=== PATIENT | male | born 1980 | race Caucasian/White ===

== ENCOUNTER 2019-04-18 08:46 | Outpatient (CLI) | payer BC ==
--- NOTE | 2019-04-18 09:06 | RAD ---
Exam: Left knee 3 views: HISTORY: Primary osteoarthritis of left knee, left knee pain without injury COMPARISON: None FINDINGS: No evidence for fracture, dislocation, or other significant acute osseous abnormality. IMPRESSION: No significant acute process.
== END 2019-04-18 08:47 | disposition home or self-care (01) ==
LOC: SCSRAD 08:46
PROVIDERS: ATTEND Family Medicine
DX: M17.12 Unilateral primary osteoarthritis, left knee (principal)